=== PATIENT | female | born 1965 | race Caucasian/White ===

== ENCOUNTER 2016-04-24 09:25 | Day surgery (SDC) | payer OTHER ==
[~2016-04-24] VITALS: Ht 152.4 cm; Wt 46.3 kg
[~2016-04-24 09:25] MED LIST: IRON
[2016-04-24 10:20] VITALS: Ht 152.4 cm; Wt 46.3 kg
[2016-04-24] MEDS ORDERED: FENTAnyl 50 MCG/ML VIAL ONE (11:07)
[2016-04-24] MEDS ORDERED: MIDAZOLAM 1 MG/ML 2 ML INJ ONE ×2 (11:07)
[2016-04-24 12:00] VITALS: BP 93/72; PULSE 65; RESP 16
--- NOTE | 2016-04-24 22:23 | GILP ---
DATE OF PROCEDURE: NAME OF PROCEDURE: Colonoscopy. SURGEON: Abigail Dias MD PREOPERATIVE DIAGNOSIS: Screening colonoscopy. POSTOPERATIVE DIAGNOSES: 1. Colonoscopy all the way to the cecum. 2. Internal hemorrhoids. 3. No colon neoplasm was identified. INDICATION FOR THE PROCEDURE: Ms. Janel Nair is a 50-year-old female patient who was scheduled for screening colonoscopy. The procedure and possible complications were well explained to the patient. She understood and con sented to the procedure. DESCRIPTION OF PROCEDURE: Under the influence of fentanyl and Versed, the colonoscope was carefully introduced in the rectum and under direct vision, it was advanced all the way to the cecum. FINDINGS: The patient had internal hemorrhoids. No colon neoplasm was identified. She tolerated the procedure very well and there was no complication from the procedure. At the end of the procedure, she was awake with stable vital signs and she was discharged home to the care of h er family. IMPRESSION: 1. Colonoscopy all the way to the cecum. 2. Internal hemorrhoids. 3. No colon neoplasm was identified. PLAN: Next screening colonoscopy in 10 years. Dictated By: ABIGAIL TAVARES/JU Conf#: [id number] DID#: [id number]
== END 2016-04-24 11:20 | disposition home or self-care (01) ==
LOC: GIL 09:25
PROVIDERS: ATTEND Internal Medicine Gastroenterology
DX: Z12.11 Encounter for screening for malignant neoplasm of colon (principal); K64.8 Other hemorrhoids
CPT/HCPCS: 45378; J2250; J3010; Z7610